=== PATIENT | female | born 1995 | race Caucasian/White ===

== ENCOUNTER → 2016-08-18 | Outpatient (CLI) | payer BC, OTHER ==
[2016-08-18 17:25] LABS: BASO % 0.7 %; BASO ABS # 0.06 K/uL (0-0.2); COMPLETE YES; EOS % 1.8 %; IG% 0.1 %; LYMPH ABS # 2.78 K/uL (1.2-3.4); MEAN CELL VOLUME 88.7 fL (80-100); MEAN CORPUSCULAR HEMOGLOBIN 27.7 pg (25-34); MEAN CORPUSCULAR HGB CONC 31.3 g/dl (32-36); MEAN PLATELET VOLUME 9.7 fL (7.4-10.4); NEUT % 60.4 %; PLATELET COUNT 419 K/uL (130-400); RED BLOOD COUNT 4.51 M/uL (4.2-5.4); WHITE BLOOD COUNT 8.96 K/uL (4.8-10.8)
[2016-08-18 17:48] LABS: ALT/SGPT 21 U/L (12-78); AST/SGOT 10 U/L (15-37); BLOOD UREA NITROGEN 13 mg/dl (7-18); BUN/CREATININE RATIO 16.2 (10-20); CALCIUM 8.1 mg/dl (8.5-10.1); CARBON DIOXIDE 26 mmol/L (21-32); CHLORIDE 105 mmol/L (98-107); CREATININE 0.79 mg/dl (0.60-1.20); GLUCOSE 123 mg/dl (70-99); POTASSIUM 3.7 mmol/L (3.5-5.1); SODIUM 139 mmol/L (136-145)
[2016-08-18 17:59] LABS: ALB/GLOB RATIO 0.6 (0.9-2); ALKALINE PHOSPHATASE 77 U/L (45-117); THYROID STIMULATING HORMONE 0.526 uIu/ml (0.300-4.500)
== END | disposition home or self-care (01) ==
LOC: C.LABBC 15:07
PROVIDERS: ATTEND Nurse Practitioner Adult Health
DX: G47.00 Insomnia, unspecified (principal)

== ENCOUNTER 2017-02-14 12:17 | Emergency (ER) | payer OTHER ==
[~2017-02-14] VITALS: Ht 162.6 cm; Wt 55.7 kg
[2017-02-14 12:22] VITALS: TEMP 36.6; Ht 162.6 cm; Wt 55.7 kg
[2017-02-14] MEDS ORDERED: SODIUM CHLORIDE 0.9% 1000ML 1,000 ML IV STA (12:31)
[2017-02-14] MEDS ORDERED: PRED10TA PO (12:53)
[2017-02-14] MEDS ORDERED: MULT-506 PO (12:53)
[2017-02-14] MEDS ORDERED: USTE45IN2 IM (12:53)
[2017-02-14] MEDS ORDERED: MISCCAP80 PO (12:53)
[2017-02-14] MEDS ORDERED: CHOL1CAP67 PO (12:53)
[2017-02-14] MEDS ORDERED: CYAN100T PO (12:53)
[2017-02-14] MEDS ORDERED: PRED20TA PO (12:53)
[2017-02-14 13:02] LABS: BASO % 0.1 %; BASO ABS # 0.01 K/uL (0-0.2); COMPLETE YES; EOS % 0.1 %; HEMATOCRIT 43.4 % (37-47); IG% 0.3 %; LYMPH % 12.8 %; LYMPH ABS # 1.48 K/uL (1.2-3.4); MEAN CELL VOLUME 87.5 fL (80-100); NEUT % 83.7 %; PLATELET COUNT 385 K/uL (130-400); RED BLOOD COUNT 4.96 M/uL (4.2-5.4); WHITE BLOOD COUNT 11.55 K/uL (4.8-10.8)
[2017-02-14 13:02] LABS: URINE APPEARANCE CLEAR (CLEAR); URINE BILIRUBIN NEG (NEG); URINE COLOR YELLOW; URINE EPITHELIAL CELL AUTO >30 /lpf (0-5); URINE NITRITE NEG (NEG); URINE PH 6.5 (4.5-7.5); URINE SPECIFIC GRAVITY 1.017 (1.000-1.030); UROBILINOGEN NEG (NEG)
[2017-02-14 13:03] LABS: MANUAL MICROSCOPIC REQUIRED? NO; REVIEW REQ? NO
[2017-02-14] MEDS ORDERED: KETOROLAC TROMETHAMINE 30 MG/ML VIAL IV STA (13:08)
[2017-02-14 13:19] LABS: ALT/SGPT 21 U/L (12-78); BLOOD UREA NITROGEN 13 mg/dl (7-18); BUN/CREATININE RATIO 16.4 (10-20); CALCIUM 8.8 mg/dl (8.5-10.1); CARBON DIOXIDE 27 mmol/L (21-32); CHLORIDE 101 mmol/L (98-107); GLUCOSE 105 mg/dl (70-99); POTASSIUM 3.9 mmol/L (3.5-5.1); SODIUM 134 mmol/L (136-145)
[2017-02-14 13:22] LABS: ALKALINE PHOSPHATASE 67 U/L (45-117); AST/SGOT 8 U/L (15-37)
--- NOTE | 2017-02-14 14:45 | DIAGNOSTIC IMAGING REPORT ---
RENAL ULTRASOUND HISTORY: Severe flank pain on the left. eval for hydronephrosis COMPARISON: None. FINDINGS: Right kidney: 10.7 cm. No hydronephrosis. Normal corticomedullary differentiation and cortical thickness. Left kidney: 10.3 cm. Mild fullness within the left renal collecting system without marsha hydronephrosis. A 4 mm stone within the left kidney. Normal corticomedullary differentiation and cortical thickness. Bladder: No bladder wall thickening. Only the right ureteral jet was identified. There appears to be a 3 mm stone at the left ureterovesical junction. IMPRESSION: 1. A 3 mm stone at the left ureterovesical junction resulting in mild fullness within the left renal collecting system. 2. Left-sided nephrolithiasis. 3. Normal right kidney. Electronically signed by: Stephen Kwon M.D. 02/14/2017 2:44 PM Dictated Date/Time: 02/14/2017 2:42 PM
[2017-02-14] MEDS ORDERED: OXYC1TAB3 PO (14:53)
[2017-02-14 15:09] VITALS: BP 114/73; PULSE 74; O2SAT 98
--- NOTE | 2017-02-14 16:17 | EMERGENCY ROOM VISIT NOTE ---
History Report prepared by Valentina: Pavel Spaulding Under the Supervision of: Dr. Frank Norman M.D. First contact with patient: 12:24 Chief Complaint: BACK PAIN Stated Complaint: SEVERE LOWER BACK PAIN, POSSIBLE KIDNEY STONE History of Present Illness The patient is a 21 year old female with a history of Crohn's disease who presents to the Emergency Room with complaints of waxing and waning lower left back pain that started 4 days ago. She states that at the end of September she was diagnosed with C. difficile, which caused a flare-up of her Crohn's disease. The patient says that she is just getting over the flare-up now, but has recently tested and now does not have the C. difficile anymore. She notes that she is still on Prednisone. The patient says that for the past 4 days, she has had lower left back pain that gets really intense and severe at times. She adds that the pain intermittently wraps around her left side to her front, and that pain is a "cramping" pain. She notes that she is concerned about a possible kidney stone, and says that she has a family history of kidney stones. The patient says that walking around sometimes helps alleviate the pain. She denies any fevers, nausea, right back pain, leg pain, leg weakness, urinary symptoms, or bowel movement changes. She notes that she has not had any complications with her Crohn's, and has not had any CT scans. Source of History: patient Onset: 4 days ago Position: back (low left) Symptom Intensity: severe (at times) Quality: cramping Timing: waxes/wanes Modifying Factors (Relieving): other (getting up and moving around) Associated Symptoms: No fevers, No nausea, No urinary symptoms, No weakness (leg) Note: Associated symptoms: Intermittently wraps around left side into front. Denies right back pain, leg pain, bowel movement changes. Review of Systems See HPI for pertinent positives & negatives. A total of 10 systems reviewed and were otherwise negative. Past Medical & Surgical Medical Problems: (1) C. difficile colitis (2) Crohns disease Family History Kidney stones Social History Smoking Status: Never Smoker Marital Status: single Housing Status: lives with family Occupation Status: student Current/Historical Medications Scheduled Cholecalciferol (Vitamin D-3), 1 CAP PO DAILY Cyanocobalamin (Vitamin B-12), Unknown Dose PO DAILY Multivitamin (Multivitamin), 1 TAB PO DAILY Prednisone (Prednisone), 1 TAB PO QAM Prednisone Tab (Prednisone), 5 MG PO HS Probiotic Product (Probiotic), 1 CAP PO DAILY Ustekinumab (Stelara), 45 MG IM Q8WK Scheduled PRN Oxycodone Ir (Roxicodone Ir), 5 MG PO Q4H PRN for Pain Allergies Coded Allergies: No Known Allergies (Unverified , 02/14/17) Physical Exam Vital Signs Date Time Temp Pulse Resp B/P (MAP) Pulse Ox O2 Delivery O2 Flow Rate FiO2 02/14/17 15:09 74 18 114/73 98 Room Air 02/14/17 13:19 70 14 128/85 100 02/14/17 12:22 36.6 84 18 131/76 97 Room Air Physical Exam Constitutional: Vital signs reviewed. Eyes: Pupils are equal round reactive to light. Conjunctiva are noninjected. ENT: Pharynx is clear without erythema or exudate. Mucous membranes are moist. Neck supple without meningeal signs. Respiratory: Clear to auscultation bilaterally. Breath sounds are equal bilaterally. Cardiovascular: Regular rate and rhythm. No rubs or gallops. GI: Minimal left lower quadrant tenderness. Soft and nondistended. Bowel sounds are present. Musculoskeletal: No peripheral edema. No CVA tenderness. Integumentary: No cyanosis. Neurological: The patient is awake and alert. No focal deficits. Psychiatric: Normal affect. Medical Decision & Procedures ER Provider Diagnostic Interpretation: US results as stated below per my review and radiologist interpretation. RENAL ULTRASOUND HISTORY: Severe flank pain on the left. eval for hydronephrosis COMPARISON: None. FINDINGS: Right kidney: 10.7 cm. No hydronephrosis. Normal corticomedullary differentiation and cortical thickness. Left kidney: 10.3 cm. Mild fullness within the left renal collecting system without marsha hydronephrosis. A 4 mm stone within the left kidney. Normal corticomedullary differentiation and cortical thickness. Bladder: No bladder wall thickening. Only the right ureteral jet was identified. There appears to be a 3 mm stone at the left ureterovesical junction. IMPRESSION: 1. A 3 mm stone at the left ureterovesical junction resulting in mild fullness within the left renal collecting system. 2. Left-sided nephrolithiasis. 3. Normal right kidney. Electronically signed by: Stephen Kwon M.D. 02/14/2017 2:44 PM Dictated Date/Time: 02/14/2017 2:42 PM Laboratory Results 02/14/17 12:40 Red Blood Count 4.96, Mean Corpuscular Volume 87.5, Mean Corpuscular Hemoglobin 28.0, Mean Corpuscular Hemoglobin Concent 32.0, Mean Platelet Volume 9.0, Neutrophils (%) (Auto) 83.7, Lymphocytes (%) (Auto) 12.8, Monocytes (%) (Auto) 3.0, Eosinophils (%) (Auto) 0.1, Basophils (%) (Auto) 0.1, Neutrophils # (Auto) 9.66, Lymphocytes # (Auto) 1.48, Monocytes # (Auto) 0.35, Eosinophils # (Auto) 0.01, Basophils # (Auto) 0.01 02/14/17 12:40 Test 02/14/17 00:00 02/14/17 12:40 Urine Color YELLOW Urine Appearance CLEAR (CLEAR) Urine pH 6.5 (4.5-7.5) Urine Specific [place] 1.017 (1.000-1.030) Urine Protein NEG (NEG) Urine Glucose (UA) NEG (NEG) Urine Ketones NEG (NEG) Urine Occult Blood 2+ (NEG) Urine Nitrite NEG (NEG) Urine Bilirubin NEG (NEG) Urine Urobilinogen NEG (NEG) Urine Leukocyte Esterase NEG (NEG) Urine WBC (Auto) 5-10 /hpf (0-5) Urine RBC (Auto) >30 /hpf (0-4) Urine Hyaline Casts (Auto) 1-5 /lpf (0-5) Urine Epithelial Cells (Auto) >30 /lpf (0-5) Urine Bacteria (Auto) 1+ (NEG) Urine Test NEG (NEG) White Blood Count 11.55 K/uL (4.8-10.8) Red Blood Count 4.96 M/uL (4.2-5.4) Hemoglobin 13.9 g/dL (12.0-16.0) Hematocrit 43.4 % (37-47) Mean Corpuscular Volume 87.5 fL (80-100) Mean Corpuscular Hemoglobin 28.0 pg (25-34) Mean Corpuscular Hemoglobin Concent 32.0 g/dl (32-36) Platelet Count 385 K/uL (130-400) Mean Platelet Volume 9.0 fL (7.4-10.4) Neutrophils (%) (Auto) 83.7 % Lymphocytes (%) (Auto) 12.8 % Monocytes (%) (Auto) 3.0 % Eosinophils (%) (Auto) 0.1 % Basophils (%) (Auto) 0.1 % Neutrophils # (Auto) 9.66 K/uL (1.4-6.5) Lymphocytes # (Auto) 1.48 K/uL (1.2-3.4) Monocytes # (Auto) 0.35 K/uL (0.11-0.59) Eosinophils # (Auto) 0.01 K/uL (0-0.5) Basophils # (Auto) 0.01 K/uL (0-0.2) RDW Standard Deviation 48.7 fL (36.4-46.3) RDW Coefficient of Variation 15.1 % (11.5-14.5) Immature Granulocyte % (Auto) 0.3 % Immature Granulocyte # (Auto) 0.04 K/uL (0.00-0.02) Anion Gap 6.0 mmol/L (3-11) Est Creatinine Clear Calc Drug Dose 95.3 ml/min Estimated GFR () 121.3 Estimated GFR (Non- 104.7 BUN/Creatinine Ratio 16.4 (10-20) Calcium Level 8.8 mg/dl (8.5-10.1) Total Bilirubin 0.2 mg/dl (0.2-1) Direct Bilirubin < 0.1 mg/dl (0-0.2) Aspartate Amino Transf (AST/SGOT) 8 U/L (15-37) Alanine Aminotransferase (ALT/SGPT) 21 U/L (12-78) Alkaline Phosphatase 67 U/L (45-117) Total Protein 8.5 gm/dl (6.4-8.2) Albumin 3.4 gm/dl (3.4-5.0) Lipase 340 U/L (73-393) Laboratory results as reviewed by me. Medications Administered Medications (Trade) Dose Ordered Sig/Debbie Route Start Time Stop Time Status Last Admin Dose Admin Sodium Chloride 1,000 ml @ 999 mls/hr Q1H1M STAT IV 02/14/17 12:31 02/14/17 13:31 DC 02/14/17 12:48 999 MLS/HR Ketorolac Tromethamine (Toradol Inj) 10 mg NOW STAT IV 02/14/17 13:08 02/14/17 13:09 DC 02/14/17 13:17 10 MG ED Course 1225: The patient was evaluated in room C4. A complete history and physical exam was performed. 1231: Ordered NSS 1000 ml @ 999 mls/hr IV. 1307: I reevaluated the patient and she is requesting something for pain. Her urine is negative. 1308: Ordered Toradol Inj 10 mg IV. 1450: I reevaluated the patient and she is feeling much better. I reviewed the test results with her, and agrees to no antibiotics for her equivocal UA due to her prior history of C. difficile. I reviewed the precautions with her about using oxycodone. She states that she has had it in the past and she will use very sparingly. The patient will be discharged. Medical Decision This is a 21-year-old female presents with left flank pain. Differential diagnosis includes renal colic, hydronephrosis, strain, Crohn's disease exacerbation, colitis, lumbar disc disease, ectopic . I did perform a limited focused review of portions of the patient's old chart on the electronic medical record. The patient has had no recent pertinent visits to this hospital. I did evaluate the patient as noted above. IV access was established. I did treat patient with normal saline IV. I did order and personally review the patient's urinalysis as described above. She does have hematuria and +1 bacteria. She has no urinary symptoms. I did not wish to start her on antibiotics given she has a prior history of C. difficile. She was in agreement. I sent a urine culture. Urine test was negative. I did treat her with Toradol IV. I did order and review the patient's blood work as noted in the electronic medical record. I did order an ultrasound of the kidneys. I did review the images myself as well as the radiology report as described above. She does have a 3 mm left UVJ stone. I did reassess patient. I did discuss the test results with her and her mother. She was feeling well enough for discharge. She was given a prescription for OxyIR for breakthrough pain and given precautions regarding this medication. She will follow up with her doctor. She was discharged in good condition. [facility] Drug Monitoring Program Search Results: patient reviewed within database Drug Monitoring Findings: No matching patients. Medication Reconcilliation Current Medication List: was personally reviewed by me Blood Pressure Screening Patient's blood pressure: Elevated blood pressure Impression Primary Impression: Renal colic Scribe Attestation The scribe's documentation has been prepared under my direct and personally reviewed by me in its entirety. I confirm that the note above accurately reflects all work, treatment, procedures, and medical decision making performed by me. Departure Information Dispostion Home / Self-Care Prescriptions Oxycodone Ir (Roxicodone Ir) 5 Mg Tab 5 MG PO Q4H Y for Pain, #20 TAB Prov: Frank Norman M.D. 02/14/17 Referrals No Doctor, Assigned (PCP) Carlotta Hale C.R.N.P. Forms HOME CARE DOCUMENTATION FORM, IMPORTANT VISIT INFORMATION Patient Instructions Kidney Stones - [facility], Pending Sale To [facility] Additional Instructions You have been examined and treated today on an emergency basis only. This is not a substitute for, or an effort to provide, complete comprehensive medical care. It is impossible to recognize and treat all injuries or illnesses in a single emergency department visit. It is therefore important that you follow up closely with your physician. Call as soon as possible for an appointment. Return for worsening symptoms or if you develop fever, vomiting, or any other concerning symptoms.
== END 2017-02-14 15:36 | disposition home or self-care (01) ==
LOC: C.EDB 12:18 → C.EDC 15:36
DX: N23 Unspecified renal colic (principal); K50.90 Crohn's disease, unspecified, without complications; N20.1 Calculus of ureter; R03.0 Elevated blood-pressure reading, without diagnosis of hypertension; Z87.19 Personal history of other diseases of the digestive system; Z79.52 Long term (current) use of systemic steroids; Z84.1 Family history of disorders of kidney and ureter